=== PATIENT | male | born 1980 | race Caucasian/White ===

== ENCOUNTER 2018-01-27 11:29 | Emergency (ER) | payer OTHER ==
[~2018-01-27] VITALS: Ht 185.4 cm; Wt 117.9 kg
[~2018-01-27 11:29] MED LIST: IBUPROFEN 800800 M1 PO; IBUPROFEN 800800 MG PO; KETOCONAZOLE60 GM TP; NOHOMEMEDICATIONS; NORCO 5-325 TA1 EACH PO; VICODIN; VICODIN 5-5001 EACH PO
[2018-01-27] MEDS ORDERED: ULTRAM 50MG TAB50 MG PO (12:32)
[2018-01-27] MEDS ORDERED: MOBIC15 MG PO (12:32)
[2018-01-27 12:45] VITALS: BP 117/87
== END 2018-01-27 12:45 | disposition home or self-care (01) ==
LOC: M.ERS 11:29
DX: S53.491A Other sprain of right elbow, initial encounter (principal); M70.21 Olecranon bursitis, right elbow; F17.210 Nicotine dependence, cigarettes, uncomplicated; Z88.5 Allergy status to narcotic agent; Z91.013 Allergy to seafood; X50.1XXA Overexertion from prolonged static or awkward postures, initial encounter; Y93.89 Activity, other specified; Y92.89 Other specified places as the place of occurrence of the external cause; Y99.8 Other external cause status

== ENCOUNTER 2019-01-07 19:26 | Emergency (ER) | payer OTHER ==
[~2019-01-07] VITALS: Ht 185.4 cm; Wt 131.5 kg
[~2019-01-07 19:26] MED LIST changes: +MOBIC15 MG PO; +ULTRAM 50MG TAB50 MG PO
[2019-01-07 20:04] LABS: INFLUENZA A ANTIGEN None Detected (None Detect); INFLUENZA B ANTIGEN None Detected (None Detect)
[2019-01-07] MEDS ORDERED: OSELB75 PO (20:09)
[2019-01-07 20:22] VITALS: BP 125/80
== END 2019-01-07 20:23 | disposition home or self-care (01) ==
LOC: M.ERS 19:26
PROVIDERS: Nurse Practitioner Family
DX: J06.9 Acute upper respiratory infection, unspecified (principal); F17.210 Nicotine dependence, cigarettes, uncomplicated; Z91.013 Allergy to seafood; Z88.8 Allergy status to other drugs, medicaments and biological substances; Z90.49 Acquired absence of other specified parts of digestive tract

== ENCOUNTER 2019-07-11 08:29 | Emergency (ER) | payer OTHER ==
[~2019-07-11] VITALS: Ht 175.3 cm; Wt 93.0 kg
[~2019-07-11 08:29] MED LIST changes: +OSELB75 PO
[2019-07-11] MEDS ORDERED: ERYTHROMYCIN E3.5 G3 OPHTHALMIC ×2 (08:43→10:25)
[2019-07-11 08:57] VITALS: BP 150/96
== END 2019-07-11 08:57 | disposition home or self-care (01) ==
LOC: M.ERS 08:29
DX: H00.014 Hordeolum externum left upper eyelid (principal); E11.9 Type 2 diabetes mellitus without complications; Z91.013 Allergy to seafood; Z88.5 Allergy status to narcotic agent

== ENCOUNTER 2020-05-07 09:05 | Emergency (ER) | payer OTHER ==
[~2020-05-07] VITALS: Ht 180.3 cm; Wt 132.4 kg
[~2020-05-07 09:05] MED LIST changes: +ERYTHROMYCIN E3.5 G3 OPHTHALMIC
[2020-05-07] MEDS ORDERED: GLIPIZIDE 10 MG10 MG PO (09:12)
[2020-05-07 09:30] VITALS: BP 145/91
== END 2020-05-07 09:30 | disposition home or self-care (01) ==
LOC: M.ERS 09:05
DX: R11.2 Nausea with vomiting, unspecified (principal); E11.9 Type 2 diabetes mellitus without complications; F17.210 Nicotine dependence, cigarettes, uncomplicated; Z91.013 Allergy to seafood

== ENCOUNTER 2020-07-17 04:33 | Emergency (ER) | payer OTHER ==
[~2020-07-17] VITALS: Ht 180.3 cm; Wt 129.7 kg
[~2020-07-17 04:33] MED LIST changes: +GLIPIZIDE 10 MG10 MG PO
[2020-07-17] MEDS ORDERED: TRAMADOL 50 MG50 MG PO (07:31)
[2020-07-17 08:07] VITALS: BP 111/75
== END 2020-07-17 08:08 | disposition still patient (30) ==
LOC: M.ERS 04:33
DX: S60.212A Contusion of left wrist, initial encounter (principal); S20.229A Contusion of unspecified back wall of thorax, initial encounter; E11.9 Type 2 diabetes mellitus without complications; F17.210 Nicotine dependence, cigarettes, uncomplicated; Z91.013 Allergy to seafood; Z88.6 Allergy status to analgesic agent; W10.8XXA Fall (on) (from) other stairs and steps, initial encounter; Y93.89 Activity, other specified; Y92.89 Other specified places as the place of occurrence of the external cause; Y99.8 Other external cause status